=== PATIENT | female | born 1980 | race Caucasian/White ===

== ENCOUNTER 2017-03-20 16:48 | Emergency (ER) | payer MEDICAID ==
[~2017-03-20] VITALS: Ht 175.3 cm; Wt 92.1 kg
[2017-03-20 19:50] VITALS: BP 112/74
== END 2017-03-20 19:50 | disposition home or self-care (01) ==
LOC: ED 16:48
DX: G44.209 Tension-type headache, unspecified, not intractable (principal)
CPT/HCPCS: J0780; J1885